=== PATIENT | male | born 1950 | race Caucasian/White ===

== ENCOUNTER → 2021-11-11 | Outpatient (CLI) | payer MEDICARE | LOC: HEART CORB 08:30 | DX: I25.10 Atherosclerotic heart disease of native coronary artery without angina pectoris (principal); R07.2 Precordial pain | CPT/HCPCS: 78452; A9502; J2785 ==

== ENCOUNTER → 2022-02-18 | Outpatient (CLI) | payer MEDICARE | LOC: LAB 11:54 | DX: Z01.812 Encounter for preprocedural laboratory examination (principal); Z20.822 Contact with and (suspected) exposure to COVID-19 | CPT/HCPCS: U0002 ==